=== PATIENT | female | born 1935 | race Caucasian/White ===

== ENCOUNTER 2022-11-09 12:17 | Outpatient (REF) | payer MEDICARE, SELFPAY ==
--- NOTE | ~2022-11-09 | XR_ITS ---
EXAMINATION: XR HIP, LEFT CLINICAL INFORMATION: Left hip pain COMPARISON: None available. TECHNIQUE: Two views of the left hip. FINDINGS: No fracture. Alignment is anatomic. Hip joint space is maintained. Soft tissues are unremarkable. XR/XR hip LT min 2V IMPRESSION: Normal left hip.
== END 2022-11-09 12:18 | disposition home or self-care (01) ==
LOC: HO.HOSX 12:17
PROVIDERS: Visit Provider Orthopaedic Surgery
DX: M25.552 Pain in left hip (principal)
CPT/HCPCS: 73502; 99212

== ENCOUNTER 2022-11-09 12:20 | Outpatient (AMB) | payer MEDICARE, SELFPAY ==
--- NOTE | 2022-11-09 12:23 | A.OFFVIS_ITS ---
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 Most of the discomfort is along the posterior aspect of her hip. She denies any groin pain. She does take oxycodone 4 times daily for chronic pain which gives her fairly good relief. Allergies No Known Allergies Allergy (Verified 11/09/22 12:37) Physical Exam Const Other: Well-nourished well-developed very friendly female awake alert and oriented x3 in no acute distress Extrem Other: Left hip examination shows minimal discomfort with range of motion, no tenderness over bursa, mild to moderate tenderness over her left sacroiliac joint, no overlying skin lesions the Results Reviewed Results Reviewed: X-rays of the patient's left hip taken today show mild diffuse joint space narrowing, no acute bony abnormalities Assessment & Plan Assessment & Plan (1) Left hip pain: Code(s): M25.552 - Pain in left hip Plan: Ms. Moreno presents with discomfort along the posterior aspect of her left hip most likely due to sacroiliitis. I had a lengthy discussion with patient regarding the treatment options. She does not wish to go to formal physical therapy. Activity modifications were discussed at length with the patient. She will continue taking oxycodone as needed. She will follow up with me on an as- needed basis. Feel free to call me at any time should questions regarding her orthopedic management arise. When I spent 22 minutes in reviewing the patient's records and imaging studies, seeing the patient and documenting in the medical record. Orders: Orders XR hip LT min 2V Today M25.552 - Pain in left hip Coding Level of Care Code Est Pt Level 2 (83189) Diagnoses Left hip pain M25.552
== END 2022-11-09 13:06 | disposition home or self-care (01) ==
PROVIDERS: Visit Provider Orthopaedic Surgery
DX: M25.552 Pain in left hip (principal)
CPT/HCPCS: 99212